=== PATIENT | female | born 1980 | race Caucasian/White ===

== ENCOUNTER 2022-05-01 15:03 | Outpatient (CLI) | payer SELFPAY ==
[2022-05-01 15:37] LABS: Basophils # 0.1 10^3/uL (0.0-0.1); Basophils % 0.6 %; Eosinophils # 0.1 10^3/uL (0.0-0.8); Eosinophils % 0.9 %; Hematocrit 33.8 % (37.0-47.0); Hemoglobin 11.6 g/dL (11.5-15.3); Lymphocytes # 1.2 10^3/uL (0.8-4.8); Lymphocytes % 11.4 %; Mean Corpuscular HGB Conc 34.3 g/dL (30.0-36.0); Mean Corpuscular Hemoglobin 37.7 pg (28.0-34.0); Mean Corpuscular Volume 109.7 fl (81-99); Mean Platelet Volume 10.8 fL (7.4-10.4); Monocytes # 0.8 10^3/uL (0.2-0.9); Monocytes % 7.9 %; Neutrophils % 77.1 %; Nucleated Red Blood Cells % 0 %; Platelet Count 171 10^3/cmm (130-400); Red Blood Count 3.08 10^6/uL (4.1-5.3); Red Cell Distribution Width 14.2 % (12.1-15.1); White Blood Count 10.5 10^3/uL (4.0-10.0)
[2022-05-01 15:54] LABS: Lactate (Lactic Acid level) 1.6 mmol/L (0.5-2.2)
[2022-05-01 15:56] LABS: Alanine Aminotransferase 13 U/L (0-33); Albumin Level 2.8 g/dL (3.5-5.2); Alkaline Phosphatase 311 IU/L (35-105); Aspartate Amino Transferase 97 U/L (0-32); Blood Urea Nitrogen 12 mg/dL (6-20); Calcium 8.6 mg/dL (8.5-10.5); Carbon Dioxide 25 mmol/L (22-29); Chloride 96 mmol/L (98-107); Globulin 3.4 g/dL (1.3-4.6); Glomerular Filtration Rate 136.6 mL/min (90-130); Glucose 107 mg/dL (65-115); Osmolality Calculated 272 mOsm/kg (285-295); Sodium 131 mmol/L (136-145); Total Protein 6.2 g/dL (6.6-8.7)
[2022-05-01 16:17] LABS: Hepatitis A Antibody IgM Non-Reactive (Nonreactive); Hepatitis B Core AB, Total Non-Reactive (Nonreactive); Hepatitis B Surface Antigen Non-Reactive (Nonreactive); Hepatitis C Virus Antibody Non-Reactive (Nonreactive)
[2022-05-01 16:18] LABS: Hepatitis B Surface AB < 3.5 (11.5-1000); Total Bilirubin 10.8 mg/dL (0.15-1.2)
== END 2022-05-01 15:04 | disposition home or self-care (01) ==
PROVIDERS: Visit Provider Family Medicine Adult Medicine
DX: K70.31 Alcoholic cirrhosis of liver with ascites (principal)
CPT/HCPCS: 36415; 80053; 83605; 85025; 86705; 86706; 86709; 86803; 87340

== ENCOUNTER 2022-05-15 11:10 | Emergency (ER) | payer SELFPAY ==
[2022-05-15 11:15] VITALS: BP 104/59; PULSE 97; RESP 16; TEMP 36.6; O2SAT 100
--- NOTE | 2022-05-15 11:22 | ED_ITS ---
HPI - General Adult General: Chief complaint: Abdominal Pain Stated complaint: bloating Time Seen by Provider: 05/15/22 11:15 History of Present Illness: Jeremiah is a 41-year-old female with a history of prior alcohol dependence presenting to the emergency room with concerns of jaund ice abdominal swelling. Patient tells me that since April 05, she has noticed increasing weight gain. Patient has noticed progressive abdominal swelling with weight gain over 40 pounds. Patient recently was seen by Dr. Duncan in outpatient clinic and was started on Lasix. Patient had routine blood work that was done from the outpatient setting which was concerning for elevated T bilirubin. Patient reports mild to moderate right upper quad abdominal pain for the last 2 weeks. Patient denies any fever/chills, cough, runny nose sore throat, nausea/vomiting, diarrhea melena hematochezia. Patient denies any hematemesis. He has not drank alcohol since 05 April when she took some homemade moonshine. Onset:1 month aog Duration:1 month Location:home Severity:moderate Associated symptoms: Deny chest pain, dyspnea, nausea, rash, palpitations or vomiting Review of Systems Const: Denies: fever(s) or chills Eyes: Denies: change in vision ENMT: Denies: mouth pain Card: Denies: chest pain or palpitations Resp: Denies: dyspnea or non-productive cough GI: Reports: abdominal pain (+RUQ abd pain) and other (+abd distension); Denies: nausea, vomiting or diarrhea : Denies: dysuria Musc: Denies: extremity pain Skin/Breast: Reports: other (+jaundice); Denies: rash or new lesions Neuro: Denies: weakness in extremities Psych: Reports: other (Normal mood) [place]/Lymph: Denies: easy bruising PFSH ED PFSH: Medical History Alcoholic cirrhosis of liver with ascites History of alcohol abuse Jaundice Social History Smoking and tobacco status: former smoker Physical Exam Const: COMMON NORMALS: alert HENMT: COMMON NORMALS: atraumatic HEAD & SCALP: atraumatic MOUTH: moist mucous membranes not abnormal Eye: COMMON NORMALS: EOMs intact bilaterally and conjunctivae normal CONJUNCTIVA: Yes conjunctivae normal Neck/C-Spine: COMMON NORMALS: full ROM and supple Resp: COMMON NORMALS: normal respiratory effort and clear to auscultation bilaterally AUSCULTATION: clear to auscultation bilaterally Cardio: COMMON NORMALS: regular rate RATE: regular rate GI: COMMON NORMALS: Soft to palpation PALPATION: Yes Soft to palpation OTHER: No focal TTP. NO guarding rebound, guarding, rigidity. No CVA tenderness to percussion. Neg Rabago/Neg McBurney's point tenderness, no suprabupic tenderness to palpation. Extremity: COMMON NORMALS: full ROM OTHER: 2+ lower extremity edema R>L lower extremity swelling Neuro: SENSORIUM/ORIENTATION: Yes alert MOTOR EXAM: No Abnormal motor strength present and Other motor observations present (no focal motor deficits) Psych: COMMON NORMALS: speech normal SPEECH: Yes normal speech MOOD & AFFECT: Yes euthymic mood Course Vital Signs: Vital signs: Vital Signs Temperature 97.8 F 05/15/22 11:15 Pulse Rate 97 05/15/22 11:15 Respiratory Rate 16 05/15/22 11:15 Blood Pressure 104/59 05/15/22 11:15 Pulse Oximetry 100 05/15/22 11:15 Oxygen Delivery Me thod 05/15/22 11:15 MDM - General Adult Medical Decision Making 41-year-old female with a history of presumed cirrhosis presenting to the emergency room with concerns of lab abnormality. On arrival, patient is noted to have abdominal distention and 2+ lower extremity edema right greater than left. No Homans' sign. Patient is hemodynamically stable. + scleral scleral icterus and diffuse jaundice. On lab work, patient is noted hemoglobin of 11.3 similar to baseline. Patient's total bilirubin of 4 today, D bili of 2.8. Patient's AST is mildly elevated. Ultrasound did not show enlarged CBD. Patient is found to have enlarged gallbladder wall. Suspect this is likely secondary to generalized abdominal ascites. Patient has no Rabago sign on exam. Patient has no signs of stones or sludge's. Do not suspect occult biliary pathologies including acute cholecystitis, choledocholithiasis or ascending cholangitis. I discussed case with Dr. Steinberg from [facility] who would like patient to follow-up closely with hepatology. Patient's ultrasound showed liver pathology consistent with cirrhosis. Patient has no signs of hepatic encephalopathy, variceal bleed, or any other emergent pathology is from her cirrhosis. Patient is stable for close outpatient follow-up with hepatology. Patient's ultrasound of the lower extremity not show any signs of DVT. Disposition: Discharge. Patient counseled regarding diagnostic impression, treatment plan. Patient given ED strict return precautions to return for continuation, worsening, or development of new symptoms. Instructed to f/u w/ PCP and hepatology regarding symptoms today. Patient verbalized understanding. Lab Data : 05/15/22 11:35 05/15/22 11:35 Radiology Impressions Gallbladder Ultrasound 05/15/22 11:37 IMPRESSION: 1. There is a subtle micronodular contour to the liver raising concern for cirrhosis. 2. There is ascites in the abdomen. 3. The gallbladder is somewhat contracted. No gallstones. Emergency Service Restorer reports a gallbladder wall measurement of 2 mm however when I measure the gallbladder wall it measures approximately 4 mm. Gallbladder wall thickening can be seen with systemic diseases and ascites or chronic acalculous cholecystitis. Venous Duplex 05/15/22 14:02 IMPRESSION: No evidence of deep vein thrombosis. Laboratory Results WBC 7.4 10^3/uL (4.0-10.0) 05/15/22 11:35 RBC 3.06 10^6/uL (4.1-5.3) L 05/15/22 11:35 Hgb 11.3 g/dL (11.5-15.3) L 05/15/22 11:35 Hct 33.7 % (37.0-47.0) L 05/15/22 11:35 MCV 110.1 fl (81-99) H 05/15/22 11:35 MCH 36.9 pg (28.0-34.0) H 05/15/22 11:35 MCHC 33.5 g/dL (30.0-36.0) 05/15/22 11:35 RDW 12.9 % (12.1-15.1) 05/15/22 11:35 Plt Count 175 10^3/cmm (130-400) 05/15/22 11:35 MPV 10.6 fL (7.4-10.4) H 05/15/22 11:35 Neut % (Auto) 74.8 % 05/15/22 11:35 Lymph % (Auto) 15.0 % 05/15/22 11:35 [place] % (Auto) 7.6 % 05/15/22 11:35 Eos % (Auto) 1.4 % 05/15/22 11:35 Baso % (Auto) 0.5 % 05/15/22 11:35 Neut # (Auto) 5.52 10^3/uL (1.8-7.7) 05/15/22 11:35 Lymph # (Auto) 1.1 10^3/uL (0.8-4.8) 05/15/22 11:35 [place] # (Auto) 0.6 10^3/uL (0.2-0.9) 05/15/22 11:35 Eos # (Auto) 0.1 10^3/uL (0.0-0.8) 05/15/22 11:35 Baso # (Auto) 0.0 10^3/uL (0.0-0.1) 05/15/22 11:35 Nucleated RBC % (auto) 0 % 05/15/22 11:35 Nucleated RBCs # 0.0 /100WBC 05/15/22 11:35 PT 15.70 SECONDS (12.1-14.9) H 05/15/22 11:35 INR 1.21 (0.8-1.2) H 05/15/22 11:35 APTT 30.4 SECONDS (23.9-36.7) 05/15/22 11:35 Sodium 134 mmol/L (136-145) L 05/15/22 11:35 Potassium 4.2 mmol/L (3.5-5.1) 05/15/22 11:35 Chloride 102 mmol/L (98-107) 05/15/22 11:35 Carbon Dioxide 23 mmol/L (22-29) 05/15/22 11:35 Anion Gap 13.2 (5-19) 05/15/22 11:35 BUN 13 mg/dL (6-20) 05/15/22 11:35 Creatinine 0.4 mg/dL (0.5-0.9) L 05/15/22 11:35 GFR Calculation 176.8 mL/min (90-130) H 05/15/22 11:35 Glucose 140 mg/dL (65-115) H 05/15/22 11:35 Calculated Osmolality 280 mOsm/kg (285-295) L 05/15/22 11:35 Calcium 8.2 mg/dL (8.5-10.5) L 05/15/22 11:35 Total Bilirubin 4.7 mg/dL (0.15-1.2) H 05/15/22 11:35 Direct Bilirubin 2.80 mg/dL (0.00-0.30) H 05/15/22 11:35 AST 94 U/L (0-32) H 05/15/22 11:35 ALT 15 U/L (0-33) 05/15/22 11:35 Alkaline Phosphatase 279 IU/L (35-105) H 05/15/22 11:35 Total Protein 6.2 g/dL (6.6-8.7) L 05/15/22 11:35 Albumin 2.4 g/dL (3.5-5.2) L 05/15/22 11:35 Globulin 3.8 g/dL (1.3-4.6) 05/15/22 11:35 Lipase 44 U/L (13-60) 05/15/22 11:35 Urine Color [place] (Yellow) 05/15/22 13:36 Urine Appearance Sl hazy (CLEAR) 05/15/22 13:36 Urine pH 5 (5-7) 05/15/22 13:36 Ur Specific [place] 1.020 (1.005-1.030) 05/15/22 13:36 Urine Protein Neg (Negative) 05/15/22 13:36 Urine Glucose (UA) Norm (Normal) 05/15/22 13:36 Urine Ketones 1+ (Negative) H 05/15/22 13:36 Urine Blood 2+ (Negative) H 05/15/22 13:36 Urine Nitrate Negative (Negative) 05/15/22 13:36 Urine Bilirubin 2+ (Negative) H 05/15/22 13:36 Urine Urobilinogen 4 mg/dL (Negative) H 05/15/22 13:36 Ur Leukocyte Esterase Trace (Negative) H 05/15/22 13:36 Urine RBC 0-4 /hpf (0-2) H 05/15/22 13:36 Urine WBC 0-4 /hpf (0-5) H 05/15/22 13:36 Ur Squamous Epith Cells 5-10 /hpf (0-5) H 05/15/22 13:36 Amorphous Sediment Not Reportable 05/15/22 13:36 Urine Bacteria Trace /hpf (NONE) 05/15/22 13:36 Urine Mucus 2+ /hpf 05/15/22 13:36 Imaging Data Other Imaging: Radiologist's impression: [facility] [address] [place] [address]. [place] [id number] Ultrasound Report Signed Patient: Lola Kong Unit #: [id number] : 1980 Age/Sex: 41 / F ADM Date: 05/15/22 Loc: ER Room/Bed: Attending Dr: Ordering Provider/Ordering MD: Gopi Grady MD Date of Service: 05/15/22 Procedure(s): [place] [id number] Accession Number(s): [id number] Report Number: [id number] PROCEDURE INFORMATION: Exam: US Duplex Lower Extremity Veins, Bilateral Exam date and time: 05/15/2022 2:17 PM Age: 41 years old Clinical indication: Edema, localized; Lower extremity, bilateral; Additional info: Dvt, R >l swelling TECHNIQUE: Imaging protocol: Real-time Duplex ultrasound of the bilateral extremities with 2-D starkey scale, color Doppler flow and spectral waveform analysis with image documentation. Complete exam focused on the bilateral lower extremity veins. COMPARISON: No relevant prior studies available. FINDINGS: Right deep veins: Unremarkable. The common femoral, femoral, proximal profunda femoral and popliteal veins are patent without thrombus. Normal Doppler waveforms. Normal compressibility and/or augmentation response.? Right superficial veins: Saphenofemoral junction is patent without thrombus. Left deep veins: Unremarkable. The common femoral, femoral, proximal profunda femoral and popliteal veins are patent without thrombus. Normal Doppler waveforms. Normal compressibility and/or augmentation response.? Left superficial veins: Saphenofemoral junction is patent without thrombus. Soft tissues: Unremarkable. US/[place] [id number] IMPRESSION: No evidence of deep vein thrombosis. ? Dictated By: Keerthi Fuentes MD Signed By: Keerthi Fuentes MD Signed Date/Time: 05/15/22 1457 DD/ 1417 [facility] [address] [place] [id number] Ultrasound Report Signed Patient: Lola Kong Unit #: [id number] : 1980 Age/Sex: 41 / F ADM Date: 05/15/22 Loc: ER Room/Bed: Attending Dr: Ordering Provider/Ordering MD: Gopi Grady MD Date of Service: 05/15/22 Procedure(s): US gall bladder [id number] Accession Number(s): [id number] Report Number: [id number] PROCEDURE INFORMATION: Exam: US Abdomen, Limited; Right Upper Quadrant Exam date and time: 05/15/2022 12:04 PM Age: 41 years old Clinical indication: Abdominal pain; Generalized; Additional info: Abd pain / possible cbd pain TECHNIQUE: Imaging protocol: Real time ultrasound of the abdomen with image documentation. Limited exam focused on the right upper quadrant. COMPARISON: No relevant prior studies available. FINDINGS: Liver: There is a subtle micronodular contour to the liver raising concern for cirrhosis. Liver has a somewhat coarsened echotexture. Gallbladder: The gallbladder is somewhat contracted. Emergency Service Restorer reports a gallbladder wall measurement of 2 mm however when I measure the gallbladder wall it measures approximately 4 mm. Biliary ducts: Normal. No stones. No dilation. Pancreas: Visualized pancreas is unremarkable. Right kidney: Normal. No mass. No hydronephrosis. US/US gall bladder 71404 IMPRESSION: 1. There is a subtle micronodular contour to the liver raising concern for cirrhosis. 2. There is ascites in the abdomen. 3. The gallbladder is somewhat contracted. No gallstones. Emergency Service Restorer reports a gallbladder wall measurement of 2 mm however when I measure the gallbladder wall it measures approximately 4 mm. Gallbladder wall thickening can be seen with systemic diseases and ascites or chronic acalculous cholecystitis. ? Dictated By: Keerthi Fuentes MD Signed By: Keerthi Fuentes MD Signed Date/Time: 05/15/22 1338 DD/ 1204 Discharge Plan Discharge Patient Disposition: Home Clinical Impression: Cirrhosis, Jaundice Condition: Stable Prescriptions: No Action spironolactone 50 mg tablet 50 mg PO QAM Qty: 30 0RF Discharge Orders: Discharge ED (Routine); Ordered 05/15/22 Ordered By: Gopi Grady Referrals: Rivera Duncan MD [Primary Care Provider] - Discharge Diet: Advance as tolerated Discharge Activity: Increase activity as tolerated Patient Instructions: Cirrhosis (ED), Jaundice (ED) Activity Restrictions/Additional Instructions: Our employment case manager will have you follow-up with [facility] in the next few days. Please call Dr. Nadeem Holloway at [phone] at outpatient followup. You would be expected to have a phone call with our employment case manager who will put you on the schedule. You can expect a call from us in the next 2-3 days. If you don't hear from us, call us back in the emergency room at [phone]. Please come back if you have any worsening abdominal pain, fever or chills, nausea or vomiting, diarrhea, blood in the stool, inability hold down liquid or solids, or any new concerning complaints. Coding Level of Care Code ED Web Services Developer for Chg Fwd Exam Comprehensive
--- NOTE | 2022-05-15 11:37 | USR_ITS ---
PROCEDURE INFORMATION: Exam: US Abdomen, Limited; Right Upper Quadrant Exam date and time: 05/15/2022 12:04 PM Age: 41 years old Clinical indication: Abdominal pain; Generalized; Additional info: Abd pain / possible cbd pain TECHNIQUE: Imaging protocol: Real time ultrasound of the abdomen with image documentation. Limited exam focused on the right upper quadrant. COMPARISON: No relevant prior studies available. FINDINGS: Liver: There is a subtle micronodular contour to the liver raising concern for cirrhosis. Liver has a somewhat coarsened echotexture. Gallbladder: The gallbladder is somewhat contracted. Affiliate Marketing Coordinator reports a gallbladder wall measurement of 2 mm however when I measure the gallbladder wall it measures approximately 4 mm. Biliary ducts: Normal. No stones. No dilation. Pancreas: Visualized pancreas is unremarkable. Right kidney: Normal. No mass. No hydronephrosis. US/US gall bladder [id number] IMPRESSION: 1. There is a subtle micronodular contour to the liver raising concern for cirrhosis. 2. There is ascites in the abdomen. 3. The gallbladder is somewhat contracted. No gallstones. Affiliate Marketing Coordinator reports a gallbladder wall measurement of 2 mm however when I measure the gallbladder wall it measures approximately 4 mm. Gallbladder wall thickening can be seen with systemic diseases and ascites or chronic acalculous cholecystitis.
[2022-05-15] MEDS: LORazepam 0.5 mg Tablet PO (11:40)
[2022-05-15 11:43] LABS: Basophils % 0.5 %; Eosinophils # 0.1 10^3/uL (0.0-0.8); Eosinophils % 1.4 %; Hematocrit 33.7 % (37.0-47.0); Hemoglobin 11.3 g/dL (11.5-15.3); Lymphocytes # 1.1 10^3/uL (0.8-4.8); Mean Corpuscular HGB Conc 33.5 g/dL (30.0-36.0); Mean Corpuscular Hemoglobin 36.9 pg (28.0-34.0); Mean Corpuscular Volume 110.1 fl (81-99); Mean Platelet Volume 10.6 fL (7.4-10.4); Monocytes # 0.6 10^3/uL (0.2-0.9); Monocytes % 7.6 %; Neutrophils # 5.52 10^3/uL (1.8-7.7); Neutrophils % 74.8 %; Nucleated Red Blood Cells % 0 %; Platelet Count 175 10^3/cmm (130-400); Red Blood Count 3.06 10^6/uL (4.1-5.3); Red Cell Distribution Width 12.9 % (12.1-15.1); White Blood Count 7.4 10^3/uL (4.0-10.0)
[2022-05-15 11:53] LABS: INR 1.21 (0.8-1.2)
[2022-05-15 11:54] LABS: Partial Thromboplastin Time 30.4 SECONDS (23.9-36.7)
[2022-05-15 12:05] LABS: Albumin Level 2.4 g/dL (3.5-5.2); Alkaline Phosphatase 279 IU/L (35-105); Blood Urea Nitrogen 13 mg/dL (6-20); Calcium 8.2 mg/dL (8.5-10.5); Carbon Dioxide 23 mmol/L (22-29); Chloride 102 mmol/L (98-107); Globulin 3.8 g/dL (1.3-4.6); Glomerular Filtration Rate 176.8 mL/min (90-130); Glucose 140 mg/dL (65-115); Lipase 44 U/L (13-60); Osmolality Calculated 280 mOsm/kg (285-295); Sodium 134 mmol/L (136-145); Total Bilirubin 4.7 mg/dL (0.15-1.2); Total Protein 6.2 g/dL (6.6-8.7)
[2022-05-15 12:12] LABS: Anion Gap 13.2 (5-19); Potassium 4.2 mmol/L (3.5-5.1)
[2022-05-15 12:13] LABS: Alanine Aminotransferase 15 U/L (0-33); Aspartate Amino Transferase 94 U/L (0-32)
[2022-05-15 13:57] LABS: Urine Color Amber (Yellow)
[2022-05-15 13:58] LABS: Add Urine Microscopic? YES; Bilirubin Urine 2+ (Negative); Blood Urine 2+ (Negative); Glucose Urine UA Norm (Normal); Ketones Urine 1+ (Negative); Leukocyte Esterase Urine Trace (Negative); Nitrate Urine Negative (Negative); Protein Urine Neg (Negative); Urine Appearance SL Hazy (CLEAR); Urobilinogen Urine 4 mg/dL (Negative); pH Urine 5 (5-7)
--- NOTE | 2022-05-15 14:02 | USR_ITS ---
PROCEDURE INFORMATION: Exam: US Duplex Lower Extremity Veins, Bilateral Exam date and time: 05/15/2022 2:17 PM Age: 41 years old Clinical indication: Edema, localized; Lower extremity, bilateral; Additional info: Dvt, R >l swelling TECHNIQUE: Imaging protocol: Real-time Duplex ultrasound of the bilateral extremities with 2-D starkey scale, color Doppler flow and spectral waveform analysis with image documentation. Complete exam focused on the bilateral lower extremity veins. COMPARISON: No relevant prior studies available. FINDINGS: Right deep veins: Unremarkable. The common femoral, femoral, proximal profunda femoral and popliteal veins are patent without thrombus. Normal Doppler waveforms. Normal compressibility and/or augmentation response. Right superficial veins: Saphenofemoral junction is patent without thrombus. Left deep veins: Unremarkable. The common femoral, femoral, proximal profunda femoral and popliteal veins are patent without thrombus. Normal Doppler waveforms. Normal compressibility and/or augmentation response. Left superficial veins: Saphenofemoral junction is patent without thrombus. Soft tissues: Unremarkable. US/CV venous duplex [facility] [id number] IMPRESSION: No evidence of deep vein thrombosis.
[2022-05-15 14:03] LABS: RBC Urine 0-4 /hpf (0-2)
[2022-05-15 14:04] LABS: Bacteria Urine TRACE /hpf; Mucus Urine 2+ /hpf; WBC Urine 0-4 /hpf (0-5)
[2022-05-15 14:05] LABS: Add Urine Culture? No
== END 2022-05-15 15:26 | disposition home or self-care (01) ==
PROVIDERS: Emergency Provider Emergency Medicine; PCP Family Medicine Adult Medicine
DX: K74.60 Unspecified cirrhosis of liver (principal); R17 Unspecified jaundice; Z87.891 Personal history of nicotine dependence
CPT/HCPCS: 76705; 80053; 81001; 82248; 83690; 85025; 85610; 85730; 93970; 99284

== ENCOUNTER 2022-05-27 10:39 | Outpatient (CLI) | payer SELFPAY ==
[2022-05-27 11:36] LABS: Ammonia 20 umol/L (11-51)
[2022-05-27 11:50] LABS: Alanine Aminotransferase 13 U/L (0-33); Albumin Level 2.7 g/dL (3.5-5.2); Alkaline Phosphatase 291 U/L (35-105); Anion Gap 12.9 (5-19); Aspartate Amino Transferase 55 U/L (0-32); Blood Urea Nitrogen 8 mg/dL (6-20); Calcium 8.4 mg/dL (8.5-10.5); Carbon Dioxide 24 mmol/L (22-29); Chloride 103 mmol/L (98-107); Globulin 3.9 g/dL (1.3-4.6); Glomerular Filtration Rate 110.7 mL/min (90-130); Glucose 102 mg/dL (65-115); Osmolality Calculated 281 mOsm/kg (285-295); Potassium 3.9 mmol/L (3.5-5.1); Sodium 136 mmol/L (136-145); Total Bilirubin 3.5 mg/dL (0.15-1.2); Total Protein 6.6 g/dL (6.6-8.7)
== END 2022-05-27 10:40 | disposition home or self-care (01) ==
PROVIDERS: PCP Family Medicine Adult Medicine; Visit Provider Internal Medicine
DX: K70.31 Alcoholic cirrhosis of liver with ascites (principal); F10.11 Alcohol abuse, in remission
CPT/HCPCS: 36415; 80053; 82140